=== PATIENT | male | born 1965 | race Caucasian/White ===

== ENCOUNTER 2021-12-07 10:00 | Emergency (ER) | payer MEDICAID ==
[~2021-12-07] VITALS: Ht 167.6 cm; Wt 79.0 kg
[2021-12-07 10:17] VITALS: BP 140/73
== END 2021-12-07 12:07 | disposition left against medical advice (07) ==
LOC: ER 10:19
DX: F10.229 Alcohol dependence with intoxication, unspecified (principal); E11.9 Type 2 diabetes mellitus without complications; I10 Essential (primary) hypertension; Y90.9 Presence of alcohol in blood, level not specified
CPT/HCPCS: 99283